=== PATIENT | female | born 1935 | race Caucasian/White ===

== ENCOUNTER 2016-12-29 02:42 | Observation (INO) ==
--- NOTE | 2016-12-29 03:12 | Emergency Department Note ---
Disposition Clinical Impression: Fecal impaction, Vasovagal syncope, Orthostatic hypotension Disposition: Admitted As Inpatient Condition: Fair Instructions: Constipation (ED), Syncope (ED) Reasons to Return/Additional Instructions: Please follow up with your regular doctor. Call when you leave here to set up a follow up appointment. Please return at any time if you are concerned about your symptoms or feel you are getting worse. Please follow up with your regular doctor for any refills of medications. Prescriptions: Polyethylene Glycol 3350 [MiraLAX] 17 gm PO DAILY #1 bottle Sodium Chloride/Nahco3/KCl/Peg [Gavilyte-N Solution] 4,000 ml PO AD PRN #1 soln.recon PRN Reason: Constipation Referrals: Galdino Marie MD [Primary Care Provider] - Forms: ED Satisfaction Letter Time of Disposition: 06:12 Neuro HPI - General Chief Complaint: ED Neuro Symptoms/Deficit Stated Complaint: CVa Time Seen by Provider: 12/29/16 03:00 Source: patient, family, EMS Mode of arrival: EMS Limitations: altered mental status Nursing Notes Reviewed: Yes Vital Signs Reviewed: Yes - History of Present Illness HPI Narrative: This is an 81-year-old female sent by the [facility] today by EMS for passing out. They had her up to the bathroom and she went limp and unresponsive. This was if she did start to arouse but cannot use her right side. Patient was then transferred for possible stroke given that she is recently had a femoral graft surgery as well as 2 cardiac stents placed last week for a non-STEMI. Patient en route became more arousable and was moving her hands. She was taken straight to CT for Stroke as this occurred 20 minutes prior to arrival, patient was able to follow commands move her arms above her head without difficulty and move her legs during the CT scan. When patient arrived back to the bed and her daughter or arrived her daughter states that she has done this a couple of times now. She describes the episodes as a state of almost catatonia and then having right-sided weakness which resolves over time. She has had previous CAT scans to evaluate for CVA which never found anything. Patient did have a stroke 20 years ago. Onset of Symptoms Date: 12/29/16 Onset of Symptoms Time: 02:40 Symptom Onset Unknown: No Timing confirmed by: caregiver Location: right face, right arm, right leg History of same: Yes Severity: severe Quality: weakness Symptoms Improving: Yes Improves with: time Worsens with: none Context: sudden onset, other (stood up, the syncope) Associated symptoms: Reports: denies other symptoms - Related Data Home Medications: Home Medications Medication Instructions Recorded Confirmed Calcium Carbonate/Vitamin D3 1 tab PO BID #0 09/17/14 12/24/16 [Calcium 600 + Vit D Tablet] Gabapentin 300 mg PO HS 09/17/14 12/24/16 Imipramine HCl [Tofranil] 25 mg PO HS 09/17/14 12/24/16 Hydrocortisone [Cortef] 10 mg PO DAILY 06/26/15 12/24/16 Pravastatin Sodium [Pravachol] 80 mg PO HS 06/26/15 12/24/16 Albuterol Sulfate [Proair Hfa] 1 puff IH PRN PRN 12/22/16 12/24/16 Hydrocortisone [Cortef] 5 mg PO HS 12/22/16 12/24/16 Levothyroxine Sodium 75 mcg PO DAILY 12/22/16 12/24/16 Multivitamin [One Daily Essential] 1 tab PO DAILY 12/22/16 12/24/16 Polyethylene Glycol 3350 [MiraLAX] 17 gm PO DAILY 12/22/16 12/24/16 Potassium Chloride [Klor-Con 16 meq PO DAILY 12/22/16 12/24/16 Sprinkle] Tiotropium [Spiriva] 1 cap IH DAILY 12/22/16 12/24/16 Losartan/Hydrochlorothiazide 1 each PO QAM 12/23/16 12/24/16 [Hyzaar 100-25 Tablet] Metoprolol Succinate [Metoprolol 50 mg PO DAILY 12/24/16 12/24/16 Succinate] Previous Rx's Medication Instructions Recorded Aspirin 81 mg PO DAILY tab.chew 12/23/16 OxyCODONE/APAP 5/325 [Percocet 1 each PO Q6HR PRN #20 tablet 12/23/16 5/325 MG] Ticagrelor [Brilinta] 90 mg PO BID #60 tablet 12/28/16 Polyethylene Glycol 3350 [MiraLAX] 17 gm PO DAILY #1 bottle 12/29/16 Sodium Chloride/Nahco3/KCl/Peg 4,000 ml PO AD PRN #1 soln.recon 12/29/16 [Gavilyte-N Solution] Allergies/Adverse Reactions: Allergies Allergy/AdvReac Type Severity Reaction Status Date / Time amlodipine Allergy Hives Verified 12/22/16 13:40 carisoprodol [From Soma] AdvReac Itching Verified 12/22/16 13:40 codeine AdvReac Anxiety Verified 12/24/16 07:06 Review of Systems: ROS reviewed and negative except as per HPI Chart generated with voice recognition software Nursing notes reviewed Old records reviewed Past Medical History - Past Medical History Attestation: Yes The following information was validated with the patient. Source: patient, old records reviewed, obtained from family, nursing notes reviewed Medical history: Reports: arthritis, COPD, coronary artery disease, diabetes, GERD, hyperlipidemia, hypertension, myocardial infarction, peripheral artery disease, renal disease, thyroid disease, TIA, other Surgical history: Reports: appendectomy, breast surgery (Bilateral implants), cataract, hysterectomy, orthopedic, other (Right foot), LE vascular intervention Psychiatric history: Reports: no psych history BOX MAKER history: Reports: no BOX MAKER history - Social History Smoking Status: Former smoker Smokeless Tobacco Status: No Alcohol use: Reports: recent Drug use: Reports: none Physical Exam General: NAD, VSS GCS 15 Head: normocephalic, atraumatic Eyes: EOMI, PERRLA mouth: moist mucous membranes Neck: NO CLA, Supple Chest wall: normal rise, no crepitus, no deformity noted Lungs: moving air well, no distress Heart: RRR Abd: soft, mildly tender in the left lower quadrant. Bowel sounds are decreased : deferred MSK: strength equal in all four extremities Ext: moves all four extremities, no obvious deformities Skin: cap refill normal, warm, dry neuro : CN2-12 grossly intact, A&Ox3 NIH was 0 Psych: normal affect, not anxious Course Course Narrative: ct shows rectal impaction, no other acute findings. MoM enema ordered for patient. [id number] patient presentstoday after a syncopal event today while using the bathroom. She has hx over the past few weeks of having episodes of passing out. She is feeling better, and she is neurologically intact on exam and re-exam. Patient states her belly is her biggest concern, as she is very constipated. MoM enema initiated for the fecal impaction. Patient agreeable to this plan. Meanwhile labwork resulting. She has a positive troponin, however in comparing to her troponin at discharge this weekend, her troponin is greatly reduced. will repeat troponin at the 2 hour brijesh, and make decision on disposition. Patient woud prefer to go back to [facility] if possible. Patient's repeat troponin went down which is reassuring. She is feeling much better after the disimpaction. However, when the nurse was getting her up prior to discharge she became very lightheaded again. At that point they did orthostatics and found that she is orthostatic drop into the 80s when she sits up. In discussing it with the patient I do feel that it would be better for her to stay in the hospital dehydrated. She really does not want to be admitted back in the [place] at this time I would prefer to stay closer to [facility] had her family, compromise today that she could stay here and get hydrated and that is something abnormal what had happened she would then be transferred later that hopefully she would hydrate up do well and to be discharged back to [facility]. Dr. Tejada the hospitalist is agreeable with this plan Vital Signs Temperature 97.7 F 12/29/16 02:43 Pulse Rate 75 12/29/16 02:43 Respiratory Rate 22 12/29/16 02:43 Blood Pressure 137/72 12/29/16 02:43 O2 Sat by Pulse Oximetry 98 12/29/16 02:43 Temperature 97.7 F 12/29/16 02:43 Pulse Rate 76 12/29/16 06:08 Respiratory Rate 16 12/29/16 05:03 Blood Pressure 108/46 12/29/16 06:08 O2 Sat by Pulse Oximetry 97 12/29/16 05:03 Oxygen Delivery Oxygen Delivery Room Air Neuro Symptoms/Deficit - Medical Records Medical records reviewed: Yes I reviewed the patient's medical records. - Lab Data Lab results reviewed: Yes I reviewed the patient's lab results. Result diagrams: 12/29/16 03:15 12/29/16 03:15 Lab Results 12/29/16 12/29/16 12/29/16 Range/Units 02:45 03:15 03:15 WBC 13.9 H (4.3-11.1) K/mcL RBC 4.60 (3.82-4.97) M/mcL Hgb 12.8 (11.5-15.4) g/dL Hct 38.2 (35.3-44.9) % MCV 83.0 (83.0-100.0) fL MCH 27.8 L (28.0-33.3) pg MCHC 33.5 (31.6-35.5) g/dL RDW 13.4 (11.5-14.5) % Plt Count 195 (140-400) K/mcL MPV 10.7 (9.4-12.4) fL Immature Gran % 3.7 (0-4) % Seg Neutrophils % 56.9 % Lymphocytes % 24.3 % Monocytes % 9.2 % Eosinophils % 5.2 % Basophils % 0.7 % Neutrophils # 7.9 (1.6-8.9) K/mcL Lymphocytes # 3.4 (0.6-4.6) K/mcL Monocytes # 1.3 (0.0-1.3) K/mcL Eosinophils # 0.7 H (0.0-0.6) K/mcL Basophils # 0.1 (0.0-0.2) K/mcL Nucleated RBCs/100 WBC 0.1 H (0) /100 WBC PT 11.2 (9.4-12.1) Seconds INR 1.0 APTT 26.7 D (26.0-36.0) Seconds Sodium (136-145) mEq/L Potassium (3.5-4.5) mEq/L Chloride (98-109) mEq/L Carbon Dioxide (19-29) mEq/L BUN (7-20) mg/dL Creatinine (0.57-1.11) mg/dL Est GFR ( Amer) (> 60) Est GFR (Non-Af Amer) (> 60) BUN/Creatinine Ratio (6-26) Glucose (70-99) mg/dL Calculated Osmolality (280-300) Calcium (8.6-10.8) mg/dL Troponin I 0.73 H* (0-0.03) ng/mL Urine Color (Yellow) Urine Clarity (Clear) Urine pH (5.0-8.0) pH Units Ur Specific [place] (1.010-1.025) Urine Protein (Neg-Trace) mg/dL Urine Glucose (UA) (Normal) mg/dL Urine Ketones (Negative) mg/dL Urine Blood (Negative) Urine Nitrite (Negative) Urine Bilirubin (Negative) Urine Urobilinogen (Normal) mg/dL Ur Leukocyte Esterase (Negative) Ur Culture Indicated? (NO) Blood Type Antibody Screen 12/29/16 12/29/16 12/29/16 Range/Units 03:15 03:15 03:22 WBC (4.3-11.1) K/mcL RBC (3.82-4.97) M/mcL Hgb (11.5-15.4) g/dL Hct (35.3-44.9) % MCV (83.0-100.0) fL MCH (28.0-33.3) pg MCHC (31.6-35.5) g/dL RDW (11.5-14.5) % Plt Count (140-400) K/mcL MPV (9.4-12.4) fL Immature Gran % (0-4) % Seg Neutrophils % % Lymphocytes % % Monocytes % % Eosinophils % % Basophils % % Neutrophils # (1.6-8.9) K/mcL Lymphocytes # (0.6-4.6) K/mcL Monocytes # (0.0-1.3) K/mcL Eosinophils # (0.0-0.6) K/mcL Basophils # (0.0-0.2) K/mcL Nucleated RBCs/100 WBC (0) /100 WBC PT (9.4-12.1) Seconds INR APTT (26.0-36.0) Seconds Sodium 135 L (136-145) mEq/L Potassium 3.6 (3.5-4.5) mEq/L Chloride 101 (98-109) mEq/L Carbon Dioxide 21 (19-29) mEq/L BUN 22 H (7-20) mg/dL Creatinine 1.26 H (0.57-1.11) mg/dL Est GFR ( Amer) 49 L (> 60) Est GFR (Non-Af Amer) 41 L (> 60) BUN/Creatinine Ratio 17 (6-26) Glucose 139 H (70-99) mg/dL Calculated Osmolality 286 (280-300) Calcium 9.1 (8.6-10.8) mg/dL Troponin I (0-0.03) ng/mL Urine Color Yellow (Yellow) Urine Clarity Clear (Clear) Urine pH 7.0 (5.0-8.0) pH Units Ur Specific [place] 1.015 (1.010-1.025) Urine Protein Negative (Neg-Trace) mg/dL Urine Glucose (UA) Normal (Normal) mg/dL Urine Ketones Negative (Negative) mg/dL Urine Blood Negative (Negative) Urine Nitrite Negative (Negative) Urine Bilirubin Negative (Negative) Urine Urobilinogen Normal (Normal) mg/dL Ur Leukocyte Esterase Negative (Negative) Ur Culture Indicated? NO (NO) Blood Type O POSITIVE Antibody Screen NEGATIVE 12/29/16 Range/Units 04:50 WBC (4.3-11.1) K/mcL RBC (3.82-4.97) M/mcL Hgb (11.5-15.4) g/dL Hct (35.3-44.9) % MCV (83.0-100.0) fL MCH (28.0-33.3) pg MCHC (31.6-35.5) g/dL RDW (11.5-14.5) % Plt Count (140-400) K/mcL MPV (9.4-12.4) fL Immature Gran % (0-4) % Seg Neutrophils % % Lymphocytes % % Monocytes % % Eosinophils % % Basophils % % Neutrophils # (1.6-8.9) K/mcL Lymphocytes # (0.6-4.6) K/mcL Monocytes # (0.0-1.3) K/mcL Eosinophils # (0.0-0.6) K/mcL Basophils # (0.0-0.2) K/mcL Nucleated RBCs/100 WBC (0) /100 WBC PT (9.4-12.1) Seconds INR APTT (26.0-36.0) Seconds Sodium (136-145) mEq/L Potassium (3.5-4.5) mEq/L Chloride (98-109) mEq/L Carbon Dioxide (19-29) mEq/L BUN (7-20) mg/dL Creatinine (0.57-1.11) mg/dL Est GFR ( Amer) (> 60) Est GFR (Non-Af Amer) (> 60) BUN/Creatinine Ratio (6-26) Glucose (70-99) mg/dL Calculated Osmolality (280-300) Calcium (8.6-10.8) mg/dL Troponin I 0.69 H* (0-0.03) ng/mL Urine Color (Yellow) Urine Clarity (Clear) Urine pH (5.0-8.0) pH Units Ur Specific [place] (1.010-1.025) Urine Protein (Neg-Trace) mg/dL Urine Glucose (UA) (Normal) mg/dL Urine Ketones (Negative) mg/dL Urine Blood (Negative) Urine Nitrite (Negative) Urine Bilirubin (Negative) Urine Urobilinogen (Normal) mg/dL Ur Leukocyte Esterase (Negative) Ur Culture Indicated? (NO) Blood Type Antibody Screen - Radiology Data Radiology results reviewed: Yes I reviewed the patient's radiology results. - EKG Data EKG attestation: Yes I reviewed and interpreted this EKG. EKG results narrative: EKG interpreted by sinus rhythm with a rate of 75 QTC of [address] elevation or prior EKG is not available at this time NIH Stroke Scale - Level of Consciousness LOC: Alert - LOC Questions LOC Questions: Answers both correctly - LOC Commands LOC Commands: Performs both correctly - Best Gaze Best Gaze: Normal - Visual Visual: No visual loss - Motor Arms Motor Arm-Left: No drift for 10 seconds Motor Arm-Right: No drift for 10 seconds - Motor Legs Motor Leg-Left: No drift for 5 seconds Motor Leg-Right: No drift for 5 seconds - Limb Ataxia Limb Ataxia: Absent of affected limb too weak to perform exam - Sensory Sensory: Normal - Best Language Best Language: No aphasia - Dysarthria Dysarthria: Normal - Extinction and Inattention Extinction and Inattention: Normal TPA Checklist - LKW: 3-4.5 hrs Add. Warnings/Precautions Patient/family understanding: The patient/family members have been counseled and understood the risk, benefit , and alternatives of treatment.
[2016-12-29 03:19] LABS: Basophils # 0.1 K/mcL (0.0-0.2); Basophils % 0.7 %; Eosinophils # 0.7 K/mcL (0.0-0.6); Eosinophils % 5.2 %; Hematocrit 38.2 % (35.3-44.9); Hemoglobin 12.8 g/dL (11.5-15.4); Immature Granulocytes % 3.7 % (0-4); Lymphocytes # 3.4 K/mcL (0.6-4.6); Lymphocytes % 24.3 %; Mean Corpuscular HGB Conc 33.5 g/dL (31.6-35.5); Mean Corpuscular Hemoglobin 27.8 pg (28.0-33.3); Mean Platelet Volume 10.7 fL (9.4-12.4); Monocytes # 1.3 K/mcL (0.0-1.3); Monocytes % 9.2 %; Neutrophils # 7.9 K/mcL (1.6-8.9); Nucleated Red Blood Cells 0.1 /100 WBC (0); Platelet Count 195 K/mcL (140-400); Red Cell Distribution Width 13.4 % (11.5-14.5); Segmented Neutrophils % 56.9 %
[2016-12-29 03:27] LABS: Prothrombin Time 11.2 Seconds (9.4-12.1)
[2016-12-29 03:29] LABS: Activated Partial Thrombo Time 26.7 Seconds (26.0-36.0)
[2016-12-29] MEDS ORDERED: Milk and Molasses Enema 200 ML RC ONE (03:34)
[2016-12-29 03:36] LABS: Calcium 9.1 mg/dL (8.6-10.8); Potassium 3.6 mEq/L (3.5-4.5)
[2016-12-29 03:59] LABS: Bilirubin,Urine Negative (Negative); Blood,Urine Negative (Negative); Clarity,Urine Clear (Clear); Color,Urine Yellow (Yellow); Glucose,Urine (UA) Normal (Normal); Ketones,Urine Negative (Negative); Leukocyte Esterase,Urine Negative (Negative); Nitrite,Urine Negative (Negative); Protein,Urine Negative (Neg-Trace); Specific Gravity,Urine 1.015 (1.010-1.025); Urobilinogen,Urine Normal (Normal)
[2016-12-29] MEDS ORDERED: 0.9 % Sodium Chloride 1,000 ML IVC SCH ×3 (06:15→06:57)
[2016-12-29] MEDS ORDERED: Mag Hydrox/Al Hydrox/Simeth 30 ML UDC PO PRN (06:57)
[2016-12-29] MEDS ORDERED: Acetaminophen 325 MG TABLET PO PRN (06:57)
[2016-12-29] MEDS ORDERED: Naloxone 0.4 MG/ML INJ IVP PRN (06:57)
[2016-12-29] MEDS ORDERED: Ondansetron ODT 4 MG TAB.RAPDIS SL PRN (06:57)
[2016-12-29] MEDS ORDERED: MOM Conc 10 ML UD.LIQ PO PRN (06:57)
[2016-12-29] MEDS: Aspirin 81 MG TAB.CHEW PO SCH (08:05)
[2016-12-29] MEDS: Multivit/Ca/Min/Fe/FA 1 TAB TABLET PO SCH (08:05)
[2016-12-29] MEDS: Hydrocortisone 10 MG TABLET PO SCH ×2 (08:05→20:03)
[2016-12-29] MEDS: (Calcium Carbonate/Vitamin D3 [Calcium 600 + Vit D TaB) PO SCH ×2 (08:06→20:06)
[2016-12-29] MEDS ORDERED: Losartan/HCTZ 50-12.5 TABLET PO SCH (09:00)
[2016-12-29] MEDS ORDERED: Metoprolol XL (24 HR) Succ 50 MG TAB.ER.24H PO SCH (09:00)
[2016-12-29] MEDS: Tiotropium 18 MCG inhalation IH SCH (09:37)
--- NOTE | 2016-12-29 15:27 | Internal Med History&Physical ---
Date of Encounter: 12/29/16 Time of Encounter: 15:00 Assessment and Plan (1) Syncope Current visit: Yes Status: Acute Etiology not obvious but suspect cardiac source. Orthostatic vital signs will be checked. IV fluids were ordered through emergency room. Hyzaar will be held since blood pressure is borderline low and azotemia is present. Qualifiers: Encounter type: sequela Qualified Code(s): T67.1XXS - Heat syncope, sequela (2) CKD (chronic kidney disease) stage 3, GFR 30-59 ml/min Current visit: No Status: Chronic We will hold Hyzaar and monitor renal indices. (3) CAD (coronary artery disease) Current visit: No Status: Chronic Continue metoprolol, aspirin, and Brilinta. Qualifiers: Coronary Disease-Associated Artery/Lesion type: hoh artery [place] vs. transplanted heart: hoh heart Associated angina: with unspecified angina Qualified Code(s): I25.119 - Atherosclerotic heart disease of hoh coronary artery with unspecified angina pectoris Internal Medicine - H&P: HPI Chief complaint: Syncope Admitted From: Long-term Nursing Facility Plans for Post Hospital Care: Transfer [facility] Care History of present illness: Ms. Richard is a 81 year old female who came to emergency room after experiencing a syncopal episode while ambulating to the bathroom at [facility]. She reports she about to sit on the toilet and suddenly became unresponsive. She did not fall because of having an attendant on either side of her. She is uncertain how long she had complete loss of consciousness. She states she was incontinent of urine but did not have seizure activity reported. She was brought to emergency room and evaluated and admitted to [facility] for ongoing care needs. She has had no further syncopal or near-syncopal episodes. She states she has felt weakness in her legs since being admitted to [facility] December 24 when she was found to have non-STEMI. Heart catheter 12/24/2016 showed severe three-vessel CAD. There was 80-90% proximal LAD lesion, 80% proximal D1 lesion, 80% proximal LCx lesion, and 80% proximal OM1 lesion. There was completely occluded proximal RCA which filled distally via faint left to right collaterals. Patient and family chose PCI instead of CABG surgery. She had WILLIAMS placed in proximal LAD and diagonal 1 and was placed on aspirin and Brilinta. She has known ASPVD with left femoropopliteal bypass 08/22/2013 and thrombectomy surgery on 12/22/2016. She has history of hypertension but no heart failure, DVT, or pulmonary embolism. Echocardiogram 12/24/2016 showed LVEF 60% with normal LV size and wall thickness. There was mild diastolic dysfunction reported although E/A ratio was 1.2. There was mild AI. She denies large distribution strokes or seizures. She claims had a TIA 2001 without recurrence. She has been diagnosed with peripheral neuropathy but is uncertain if it is due to diabetes. Past Med Surg Social Fam HX - Past Medical History Medical history: arthritis, COPD, coronary artery disease, diabetes, GERD, hyperlipidemia, hypertension, myocardial infarction, peripheral artery disease, renal disease, thyroid disease, TIA, other Psychiatric history: no psych history - Past Surgical History Surgical History: appendectomy, breast surgery, cataract, hysterectomy, orthopedic, other, LE vascular intervention - Social History Smoking Status: Former smoker Smokeless Tobacco Status: No Alcohol use: recent Drug use: none - Family History Mother Hx Family Cardiac Disorders: Yes Hx Family Endocrine Disorder: Yes Internal Medicine - H&P: Meds Calcium Carbonate/Vitamin D3 [Calcium 600 + Vit D Tablet] 1 tab PO BID #0 [History] Gabapentin 300 mg PO HS 09/17/14 [History] Imipramine HCl [Tofranil] 25 mg PO HS 09/17/14 [History] Hydrocortisone [Cortef] 10 mg PO DAILY 06/26/15 [History] Pravastatin Sodium [Pravachol] 80 mg PO HS 06/26/15 [History] Albuterol Sulfate [Proair Hfa] 1 puff IH PRN PRN 12/22/16 [History] Hydrocortisone [Cortef] 5 mg PO HS 12/22/16 [History] Levothyroxine Sodium 75 mcg PO DAILY 12/22/16 [History] Multivitamin [One Daily Essential] 1 tab PO DAILY 12/22/16 [History] Polyethylene Glycol 3350 [MiraLAX] 17 gm PO DAILY 12/22/16 [History] Potassium Chloride [Klor-Con Sprinkle] 16 meq PO DAILY 12/22/16 [History] Tiotropium [Spiriva] 1 cap IH DAILY 12/22/16 [History] Aspirin 81 mg PO DAILY tab.chew 12/23/16 [Rx] Losartan/Hydrochlorothiazide [Hyzaar 100-25 Tablet] 1 each PO QAM 12/23/16 [ History] OxyCODONE/APAP 5/325 [Percocet 5/325 MG] 1 each PO Q6HR PRN #20 tablet 12/23/16 [Rx] Metoprolol Succinate [Metoprolol Succinate] 50 mg PO DAILY 12/24/16 [History] Ticagrelor [Brilinta] 90 mg PO BID #60 tablet 12/28/16 [Rx] Polyethylene Glycol 3350 [MiraLAX] 17 gm PO DAILY #1 bottle 12/29/16 [Rx] Sodium Chloride/Nahco3/KCl/Peg [Gavilyte-N Solution] 4,000 ml PO AD PRN #1 soln.recon 12/29/16 [Rx] 3 Allergy/AdvReac Type Severity Reaction Status Date / Time amlodipine Allergy Hives Verified 12/22/16 13:40 carisoprodol [From Soma] AdvReac Itching Verified 12/22/16 13:40 codeine AdvReac Anxiety Verified 12/24/16 07:06 All Systems PM: A 10-system review of systems was performed and is negative for pertinent findings except as documented above in the HPI. Review of systems: Review of systems from her September 2014 [facility] hospitalization were reviewed and revised as below. Gen.: Her weight has increased from 78.109 kg on 09/19/2014 to 90.718 kg on admission now. Cardiovascular: As per history of present illness Respiratory: She smoked from age [age] up to 2 packs per day. She has been diagnosed with COPD but does not wear home O2. She has had evaluation for KULDEEP which was negative. GI: She denies disorders of her gallbladder or exocrine pancreas. She has had elevated LFTs in the past of uncertain etiology. She has diagnoses of diverticulosis. She was hospitalized September 2014 [facility] with diarrhea. Her last colonoscopy was approximately 2004. : She has a diagnosis of CKD3 and overactive bladder. Neurologic: As per history of present illness Endocrine: she has diagnoses of hyperlipidemia and hypothyroidism (secondary). She was diagnosed with DM 2 in 2009. She has diagnosis of Murphy's disease. Hematology/oncology: she denies anemia, internal malignancies, or other blood disorders. Psychiatric: She denies anxiety depression or other mental health issues. [place] skeletal: She has DJD but no known gout or osteoporosis - Constitutional Vitals: Temp Pulse Resp BP Pulse Ox 97.7 F 79 14 146/48 97 12/29/16 02:43 12/29/16 06:37 12/29/16 09:37 12/29/16 06:37 12/29/16 09:37 Exam: Gen.: She is a well-developed well-nourished female who appears in no acute distress at present time HEENT: Head is atraumatic and normocephalic. Eyes: EOMI. There is no scleral icterus. Mouth: Mucosa is moist. Neck: Supple and nontender. There is no thyromegaly or adenopathy noted. Heart: Regular without murmurs gallops or ectopics Lungs: No wheezes or crackles are heard. Abdomen: Soft and nontender. No masses or guarding noted. Extremities: There is no cyanosis edema or clubbing noted. Dorsalis pedis and posterior tibial pulses are trace to 1+ palpable bilaterally. Neurologic: Mental status: She is talkative and a good historian. Cranial nerves: Smile is symmetric. Forehead wrinkles bilaterally. Tongue protrudes midline. EOMI. Motor: There is no pronator drift. Cerebellar: Finger to nose is intact bilaterally. Skin: Warm and dry Internal Med - H&P Results - Labs CBC & Chem 7: 12/29/16 03:15 12/29/16 03:15
[2016-12-29] MEDS: Gabapentin 300 MG CAPSULE PO SCH (20:02)
--- NOTE | 2016-12-29 20:16 | Electrocardiograph Report ---
[address] [place] [id number] Test Date: 2016-12-29 Pat Name: Hayley Richard Department: [id number] Room: [facility] Gender: F Patent Clerk: TT : [id number] Requested By: Lisa Murphy Order Number: [id number] Reading MD: Catracho Harrison MD Measurements Intervals [place] Rate: 75 P: 17 AR: 146 QRS: -19 QRSD: 112 T: 95 QT: 420 QTc: 449 Interpretive Statements SINUS RHYTHM LEFT VENTRICULAR HYPERTROPHY AND ST-T CHANGE INFERIOR MYOCARDIAL INFARCTION, PROBABLY OLD POSSIBLE ANTEROSEPTAL MYOCARDIAL INFARCTION, OF INDETERMINATE AGE Poor R wave progression Electronically Signed On 12-29-2016 20:14:39 EST by Catracho Harrison MD
[2016-12-30 04:39] LABS: Basophils # 0.1 K/mcL (0.0-0.2); Basophils % 1.1 %; Eosinophils # 0.9 K/mcL (0.0-0.6); Eosinophils % 7.6 %; Hematocrit 36.4 % (35.3-44.9); Immature Granulocytes % 4.9 % (0-4); Lymphocytes # 2.7 K/mcL (0.6-4.6); Lymphocytes % 22.2 %; Mean Corpuscular Hemoglobin 27.6 pg (28.0-33.3); Mean Corpuscular Volume 83.9 fL (83.0-100.0); Mean Platelet Volume 10.7 fL (9.4-12.4); Monocytes # 1.3 K/mcL (0.0-1.3); Monocytes % 10.6 %; Neutrophils # 6.6 K/mcL (1.6-8.9); Nucleated Red Blood Cells 0.3 /100 WBC (0); Platelet Count 201 K/mcL (140-400); Red Blood Count 4.34 M/mcL (3.82-4.97); Red Cell Distribution Width 13.6 % (11.5-14.5); Segmented Neutrophils % 53.6 %
[2016-12-30 04:57] LABS: Magnesium 1.8 mg/dL (1.6-2.6); Potassium 4.2 mEq/L (3.5-4.5)
[2016-12-30] MEDS: Tiotropium 18 MCG inhalation IH SCH (08:47)
[2016-12-30] MEDS: Multivit/Ca/Min/Fe/FA 1 TAB TABLET PO SCH (09:26)
[2016-12-30] MEDS: *HR* Ticagrelor 90 MG TABLET PO SCH ×2 (09:26→22:05)
[2016-12-30] MEDS: Aspirin 81 MG TAB.CHEW PO SCH (09:27)
[2016-12-30] MEDS: (Calcium Carbonate/Vitamin D3 [Calcium 600 + Vit D TaB) PO SCH ×2 (09:27→22:06)
[2016-12-30] MEDS: Hydrocortisone 10 MG TABLET PO SCH ×2 (09:36→22:07)
--- NOTE | 2016-12-30 10:41 | Internal Med Progress Note ---
Date of Encounter: 12/30/16 Time of Encounter: 10:35 - Assessment and plan (1) Syncope Current Visit: Yes Status: Acute Assessment and plan: December 30. Suspect due to to orthostatic pressure drop. She will remain off Hyzaar. I will reduce Toprol to 25 mg daily. Recheck orthostatic blood pressures in a.m. Anticipate discharge back to [facility] tomorrow if stable Qualifiers: Encounter type: sequela Qualified Code(s): T67.1XXS - Heat syncope, sequela (2) CKD (chronic kidney disease) stage 3, GFR 30-59 ml/min Current Visit: No Status: Chronic Assessment and plan: December 30. Improved. Continue to hold Hyzaar. (3) CAD (coronary artery disease) Current Visit: No Status: Chronic Assessment and plan: December 30. Continue aspirin, Brilinta, and reduced dose metoprolol. Qualifiers: Coronary Disease-Associated Artery/Lesion type: [place] artery [place] vs. transplanted heart: [place] heart Associated angina: with unspecified angina Qualified Code(s): I25.119 - Atherosclerotic heart disease of [place] coronary artery with unspecified angina pectoris - Subjective Interval history: December 30. She has no new complaints and feels better overall. She has had no further syncopal or near syncopal episodes. - Constitutional Vitals: Temp Pulse Resp BP Pulse Ox 97.6 F 72 16 106/49 96 12/30/16 06:58 12/30/16 07:03 12/30/16 06:58 12/30/16 07:03 12/30/16 08:57 Exam: She is resting comfortably in bed. Her affect is bright and cheerful. Orthostatic vital signs showed a 26 mm Hg systolic drop going from lying to sitting. She became lightheaded on standing before standing pressure could be obtained. Reviewed her medications and lab results. Internal Medicine: Result - Labs CBC & Chem 7: 12/30/16 04:34 12/30/16 04:34 Labs: Short CBC 12/30/16 Range/Units 04:34 WBC 12.3 H (4.3-11.1) K/mcL Hgb 12.0 (11.5-15.4) g/dL Hct 36.4 (35.3-44.9) % Plt Count 201 (140-400) K/mcL Neutrophils # 6.6 (1.6-8.9) K/mcL BMP 12/30/16 04:34 Sodium 135 L Potassium 4.2 Chloride 104 Carbon Dioxide 21 BUN 16 Creatinine 1.09 Glucose 107 H Calcium 9.0 - ABG Interpretation ABG results: PT/INR, D-dimer PT 11.2 Seconds (9.4-12.1) 12/29/16 03:15 Consult Discharge Plan - Plan Referrals: Galdino Marie MD [Primary Care Provider] - 1 week
[2016-12-30] MEDS ORDERED: Metoprolol XL (24 HR) Succ 50 MG TAB.ER.24H PO SCH (10:46)
[2016-12-30] MEDS: Gabapentin 300 MG CAPSULE PO SCH (22:05)
[2016-12-31] MEDS ORDERED: traZODone 50 MG TABLET PO PRN (00:12)
[2016-12-31 05:56] LABS: Hematocrit 36.2 % (35.3-44.9); Hemoglobin 11.9 g/dL (11.5-15.4); Mean Corpuscular HGB Conc 32.9 g/dL (31.6-35.5); Mean Corpuscular Hemoglobin 27.7 pg (28.0-33.3); Mean Corpuscular Volume 84.4 fL (83.0-100.0); Mean Platelet Volume 10.9 fL (9.4-12.4); Nucleated Red Blood Cells 0.2 /100 WBC (0); Platelet Count 224 K/mcL (140-400); Red Blood Count 4.29 M/mcL (3.82-4.97); Red Cell Distribution Width 13.6 % (11.5-14.5)
[2016-12-31 06:14] LABS: BUN/Creatinine Ratio 15 (6-26); Blood Urea Nitrogen 15 mg/dL (7-20); Calcium 8.5 mg/dL (8.6-10.8); Carbon Dioxide 20 mEq/L (19-29); Chloride 106 mEq/L (98-109); Glucose 137 mg/dL (70-99); Osmolality,Calculated 283 (280-300); Potassium 3.7 mEq/L (3.5-4.5); Sodium 135 mEq/L (136-145); eGFR For African Americans > 60 (> 60); eGFR For Non-African Americans 53 (> 60)
[2016-12-31 07:04] VITALS: BP 96/57
[2016-12-31 07:39] LABS: Anisocytosis 1+ (Not Present); Eosinophils # 0.5 K/mcL (0.0-0.6); Lymphocytes # 1.8 K/mcL (0.6-4.6); Neutrophils # 8.6 K/mcL (1.6-8.9); Polychromasia 1+ (Not Present)
[2016-12-31 07:40] LABS: Platelet Estimate Normal (Normal)
[2016-12-31] MEDS: Aspirin 81 MG TAB.CHEW PO SCH (08:21)
[2016-12-31] MEDS: *HR* Ticagrelor 90 MG TABLET PO SCH (08:21)
[2016-12-31] MEDS: Multivit/Ca/Min/Fe/FA 1 TAB TABLET PO SCH (08:23)
[2016-12-31] MEDS: Hydrocortisone 10 MG TABLET PO SCH (08:24)
[2016-12-31] MEDS: (Calcium Carbonate/Vitamin D3 [Calcium 600 + Vit D TaB) PO SCH (08:25)
--- NOTE | 2016-12-31 09:48 | Discharge Summary ---
Date of Encounter: 12/31/16 Time of Encounter: 09:35 - Discharge Diagnosis (1) Syncope due to orthostatic hypotension Priority: Primary Status: Acute (2) CKD (chronic kidney disease) stage 3, GFR 30-59 ml/min Priority: Secondary Status: Chronic (3) CAD (coronary artery disease) Priority: Secondary Status: Chronic Qualifiers: Coronary Disease-Associated Artery/Lesion type: [place] artery [place] vs. transplanted heart: [place] heart Associated angina: with unspecified angina Qualified Code(s): I25.119 - Atherosclerotic heart disease of [place] coronary artery with unspecified angina pectoris - Discharge Medications Prescriptions: Metoprolol XL (24 HR) Succ [Toprol XL] 25 mg PO DAILY 365 Days tab.er.24h Home Medications: Calcium Carbonate/Vitamin D3 [Calcium 600 + Vit D Tablet] 1 tab PO BID #0 [History] Gabapentin 300 mg PO HS 09/17/14 [History] Hydrocortisone [Cortef] 10 mg PO DAILY 06/26/15 [History] Pravastatin Sodium [Pravachol] 80 mg PO HS 06/26/15 [History] Albuterol Sulfate [Proair Hfa] 1 puff IH PRN PRN 12/22/16 [History] Hydrocortisone [Cortef] 5 mg PO HS 12/22/16 [History] Levothyroxine Sodium 75 mcg PO DAILY 12/22/16 [History] Multivitamin [One Daily Essential] 1 tab PO DAILY 12/22/16 [History] Polyethylene Glycol 3350 [MiraLAX] 17 gm PO DAILY 12/22/16 [History] Potassium Chloride [Klor-Con Sprinkle] 16 meq PO DAILY 12/22/16 [History] Tiotropium [Spiriva] 1 cap IH DAILY 12/22/16 [History] Aspirin 81 mg PO DAILY tab.chew 12/23/16 [Rx] OxyCODONE/APAP 5/325 [Percocet 5/325 MG] 1 each PO Q6HR PRN #20 tablet 12/23/16 [Rx] Ticagrelor [Brilinta] 90 mg PO BID #60 tablet 12/28/16 [Rx] Polyethylene Glycol 3350 [MiraLAX] 17 gm PO DAILY #1 bottle 12/29/16 [Rx] Sodium Chloride/Nahco3/KCl/Peg [Gavilyte-N Solution] 4,000 ml PO AD PRN #1 soln.recon 12/29/16 [Rx] Metoprolol XL (24 HR) Succ [Toprol XL] 25 mg PO DAILY 365 Days tab.er.24h 12/31 [Rx] Allergies/Adverse Reactions: 3 Allergy/AdvReac Type Severity Reaction Status Date / Time amlodipine Allergy Hives Verified 12/22/16 13:40 carisoprodol [From Soma] AdvReac Itching Verified 12/22/16 13:40 codeine AdvReac Anxiety Verified 12/24/16 07:06 Procedures/tests Complete & Pending: Procedures Performed prior 72 hours Category Date Time Status ECG 12 lead ECG [ECG] Stat Y 12/29/16 06:58 Completed Date of admission: 12/29/16 06:46 Primary care physician: Galdino Marie MD Consults: 12/29/16 07:48 Consult to Presetter Operator [CONS] Routine Reason for SW Consult: d/c planning - Patient Status Disposition: Transfer SNF Condition: Fair Overall status at discharge: patient is progressing back to baseline - Discharge Instructions - Diet and Activity Activity: resume usual activities as tolerated Diet: advance to your usual diet Hospital course: Ms. Richard is a 81 year old female who came to emergency room after experiencing a syncopal episode while ambulating to the bathroom at [facility]. She reports she about to sit on the toilet and suddenly became unresponsive. She did not fall because of having an attendant on either side of her. She is uncertain how long she had complete loss of consciousness. She states she was incontinent of urine but did not have seizure activity reported. She was brought to emergency room and evaluated and admitted to [facility] for ongoing care needs. Initial orders were written by the emergency room physician. I saw her on December 29 and performed a history and physical. She was placed on telemetry and IV fluids were ordered. Her telemetry remained stable. Orthostatic vital signs showed blood pressure decrease from 126/52 sitting to 81/47 standing. Her Hyzaar was discontinued and Toprol was decreased to 25 mg daily. She had no further syncopal episodes but continued to feel orthostatic hypotension symptoms on arising from a supine position. I told her it would take a few days for the above-mentioned medication changes to reach full effect. I will also discontinue her imipramine to lessen the risk of orthostatic hypotension. Her azotemia improved off Hyzaar with creatinine decreasing to 1.01 and estimated GFR rising to 53. She will remain off this at discharge. WBC remained slightly elevated at 12.7 on the day of discharge with a left shift of 12% bands, 2% metamyelocytes, and 4% myelocytes. She complained of dysuria and I will give her 3 days of Levaquin with lactobacillus. On December 31 I felt she was safe for discharge back to [facility] where she will follow with Dr. Magallon. - Time Spent with Patient Total time spent providing and/or coordinating discharge services: - Constitutional Vitals: Temp Pulse Resp BP Pulse Ox 98.6 F 80 18 96/57 98 12/31/16 07:01 12/31/16 07:01 12/31/16 07:01 12/31/16 07:01 12/31/16 07:01
[2016-12-31] MEDS ORDERED: Tiotropium 18 MCG inhalation IH SCH (10:00)
--- NOTE | 2016-12-31 10:04 | Physician Discharge Referral ---
[facility]Care Referral Info Transfer To: [facility] Provider in Charge: Ter[place] Provider in Charge after Transfer: PCP (Jeovany Magallon M.D.) - Diagnosis (1) Syncope due to orthostatic hypotension Priority: Primary Status: Acute (2) CKD (chronic kidney disease) stage 3, GFR 30-59 ml/min Priority: Secondary Status: Chronic (3) CAD (coronary artery disease) Priority: Secondary Status: Chronic Prognosis: Good Aware of Diagnosis: Patient Aware of Prognosis: Patient - Transfer Medications Prescriptions: Metoprolol XL (24 HR) Succ [Toprol XL] 25 mg PO DAILY 365 Days tab.er.24h Home Medications: Calcium Carbonate/Vitamin D3 [Calcium 600 + Vit D Tablet] 1 tab PO BID #0 [History] Gabapentin 300 mg PO HS 09/17/14 [History] Hydrocortisone [Cortef] 10 mg PO DAILY 06/26/15 [History] Pravastatin Sodium [Pravachol] 80 mg PO HS 06/26/15 [History] Albuterol Sulfate [Proair Hfa] 1 puff IH PRN PRN 12/22/16 [History] Hydrocortisone [Cortef] 5 mg PO HS 12/22/16 [History] Levothyroxine Sodium 75 mcg PO DAILY 12/22/16 [History] Multivitamin [One Daily Essential] 1 tab PO DAILY 12/22/16 [History] Polyethylene Glycol 3350 [MiraLAX] 17 gm PO DAILY 12/22/16 [History] Potassium Chloride [Klor-Con Sprinkle] 16 meq PO DAILY 12/22/16 [History] Tiotropium [Spiriva] 1 cap IH DAILY 12/22/16 [History] Aspirin 81 mg PO DAILY tab.chew 12/23/16 [Rx] OxyCODONE/APAP 5/325 [Percocet 5/325 MG] 1 each PO Q6HR PRN #20 tablet 12/23/16 [Rx] Ticagrelor [Brilinta] 90 mg PO BID #60 tablet 12/28/16 [Rx] Polyethylene Glycol 3350 [MiraLAX] 17 gm PO DAILY #1 bottle 12/29/16 [Rx] Sodium Chloride/Nahco3/KCl/Peg [Gavilyte-N Solution] 4,000 ml PO AD PRN #1 soln.recon 12/29/16 [Rx] Metoprolol XL (24 HR) Succ [Toprol XL] 25 mg PO DAILY 365 Days tab.er.24h 12/31 [Rx] Allergies/Adverse Reactions: 3 Allergy/AdvReac Type Severity Reaction Status Date / Time amlodipine Allergy Hives Verified 12/22/16 13:40 carisoprodol [From Soma] AdvReac Itching Verified 12/22/16 13:40 codeine AdvReac Anxiety Verified 12/24/16 07:06 - Respiratory Orders Smoking Cessation: Smoking cessation has been advised. For more information, call the [place] Tobacco Quit Line at 5-582-CYQC-NOW. - Mobility Orders Ambulate (With assistance) - Rehabiliation Orders Rehab Potential: Good Rehab Orders: Evaluation for Physical Therapy, Evaluation for Occupational Therapy CERTIFICATION: I certify that the transfer of the above named patient to an Extended Care Facility is necessary for the continuing treatment of the diagnosis listed. The above information is true and accurate reflection of patient's current condition. Confidential - Redisclosure prohibited without a patient's written consent.
== END 2016-12-31 11:00 ==
LOC: EMEROOPIK 02:42 → INPPIK 02:42
PROVIDERS: ADMIT Internal Medicine; ATTEND Internal Medicine